=== PATIENT | female | born 1935 | race Caucasian/White ===

== ENCOUNTER 2018-11-08 13:35 | Observation (INO) ==
[2018-11-08 14:47] LABS: BASO# 0.02 X1000 (0.0-0.2); BASO% 0.4 % (0.0-0.8); EOS# 0.08 X1000 (0.0-0.7); EOS% 1.5 % (0.0-10.0); HEMOGLOBIN 13.6 g/dL (12.0-16.0); IMM GRAN# 0.02 X1000 (0.0-0.04); IMM GRAN% 0.4 % (0.0-0.5); LYMPH# 1.31 X1000 (1.2-3.4); MCH 27.1 PG (27-31); MCHC 32.4 g/dL (33-37); MCV 83.7 FL (81-99); MONO# 0.39 X1000 (0.11-0.59); MONO% 7.2 % (1.7-9.3); MPV 12.8 FL (7.4-10.4); NEUT# 3.63 X1000 (1.4-6.5); NEUT% 66.5 % (42.2-75.2); PLT 125 X1000 (130-400); RBC 5.02 XMIL (4.2-5.4); RDW 16.9 % (11.5-14.5); WBC 5.45 X1000 (4.8-10.8)
--- NOTE | 2018-11-08 14:54 | EKG Report ---
Test Performed on : 11/08/2018 2:30:53 PM Test Reason : med cl Blood Pressure : / mmHG Vent. Rate : 069 BPM Atrial Rate : 069 BPM P-R Int : 148 ms QRS Dur : 110 ms QT Int : 398 ms P-R-T Axes : 084 -37 014 degrees QTc Int : 426 ms Normal sinus rhythm. Left axis deviation Pulmonary disease pattern Incomplete right bundle branch block Voltage criteria for left ventricular hypertrophy Inferior infarct , age undetermined Abnormal ECG No previous ECGs available Unconfirmed Result
[2018-11-08 15:07] LABS: BILIRUBIN URINE NEGATIVE (NEGATIVE); BLOOD URINE NEGATIVE (NEGATIVE); CLARITY SL. CLOUDY (CLEAR); COLOR AMBER; GLUCOSE URINE NEGATIVE (NEGATIVE); KETONE URINE TRACE mg/dL (NEGATIVE); LEUKOCYTES URINE 1+ (NEGATIVE); NITRITE URINE POSITIVE (NEGATIVE); PROTEIN URINE 1+(30 mg/dL) mg/dL (NEGATIVE); UROBILINOGEN URINE 8 mg/dL
[2018-11-08 15:11] LABS: URINE BACTERIA 2+ /HFP; URINE EPITHELIAL CELLS >10 /HPF (<10); URINE SOURCE CLEAN CATCH
[2018-11-08 15:12] LABS: URINE CAST NONE SEEN /LPF; URINE CRYSTAL URIC ACID PRESENT /HPF; URINE YEAST NONE SEEN /HPF
[2018-11-08 15:13] LABS: UR AMPHETAMINES QUAL NONE DETECTED (NONE DETECT); UR BARBITUATES QUAL NONE DETECTED (NONE DETECT); UR BENZODIAZEPIN QUAL PRESUMPTIVE POSITIVE (NONE DETECT); UR CANNABINOIDS QUAL NONE DETECTED (NONE DETECT); UR COCAINE QUAL NONE DETECTED (NONE DETECT); UR METHADONE QUAL NONE DETECTED (NONE DETECT); UR METHAMPHETAMINE QUAL NONE DETECTED (NONE DETECT); UR OPIATES QUAL NONE DETECTED (NONE DETECT); UR OXYCODONE QUAL NONE DETECTED (NONE DETECT); UR PCP QUAL NONE DETECTED (NONE DETECT); UR PROPOXYPHENE QUAL NONE DETECTED (NONE DETECT); UR TCA QUAL NONE DETECTED (NONE DETECT)
[2018-11-08 15:19] LABS: AGAP 9; ALBUMIN 3.1 g/dL (3.5-5.0); ALKALINE PHOSPHATASE 169 U/L (32-104); BUN 12 mg/dL (8-22); CALCIUM 8.6 mg/dL (8.8-10.2); CHLORIDE 100 mmol/L (98-107); COSMO 274; CREATININE 0.8 mg/dL (0.5-0.9); ESTIMATED GFR > 60; GLUCOSE 141 mg/dL (70-104); GOT 356 U/L (10-30); GPT 383 U/L (10-36); POTASSIUM 4.3 mmol/L (3.5-5.1); SODIUM 136 mmol/L (136-145); TCO2 27 mmol/L (25-35); TOTAL PROTEIN 8.4 g/dL (6.3-8.3)
[2018-11-08 15:37] LABS: TSH 3.55 uIUmL (0.27-4.20)
--- NOTE | 2018-11-08 16:26 | ED EKG INTERP ---
This chart was entered by Yue Patel Scribe, acting as scribe for Margaret Lake MD. EKG Interpretation - EKG Time of EKG reading by physician:: 14:30 EKG Read and Signed by:: Margaret Lake EKG Interpretation (*Must complete 3 of following elements*): Abnormal (inferior infarct, age undetermined) Rate: 69 Rhythm: normal sinus rhythm Sparks: left QRS: RBB (incomplete) Comments: pulmonary disease pattern;voltage criteria for left ventricular hypertrophy Attestation - Physician/ NANCY Attestation The physician spent face to face time with patient:: No Advanced Practice Provider documentation review:: Supervising physician onsite and consulted in the evaluation and care of this patient. The physician did not have a face to face encounter with the patient. This chart was documented by the indicated scribe, (Yue Patel Scribe) and accurately reflects the services I performed and decisions made by me, Margaret Lake MD, as attested by the provider's signature.
[2018-11-08] MEDS ORDERED: XYLOCAINE-MPF 1% INJ ONE (17:28)
[2018-11-08] MEDS ORDERED: ROCEPHIN IM ONE (17:28)
[2018-11-08] MEDS ORDERED: TYLENOL PO PRN (18:18)
[2018-11-08] MEDS ORDERED: GEODON ONE (18:41)
[2018-11-08] MEDS: GEODON PO SCH (18:48)
[2018-11-08] MEDS: NAMENDA PO SCH (18:48)
--- NOTE | 2018-11-08 19:27 | HISTORY AND PHYSICAL ---
CHIEF COMPLAINT: Dementia with increased agitation and behavior. HISTORY OF PRESENT ILLNESS: This is an 83-year-old female with a history of dementia who presents on instructions from [facility] to be medically cleared for evaluation. According to the , the patient has dementia and her symptoms have increased. She is having increased agitation, wandering and difficulty performing activities of daily living. She is unable to participate in the exam so all information is taken from the . PAST MEDICAL HISTORY: Dementia. PAST SURGICAL HISTORY: Hysterectomy. SOCIAL HISTORY: No alcohol, tobacco, or illicit drug use. ALLERGIES: No known drug allergies. HOME MEDICATIONS: A list will be obtained by the nursing staff. We will review and restart as appropriate. REVIEW OF SYSTEMS: Unable to obtain from the patient. The is unaware of any complaints. PHYSICAL EXAMINATION: GENERAL: This is a very pleasant 83-year-old female who is pacing through the ER in no distress. VITAL SIGNS: Blood pressure is 115/80 with a heart rate of 100, respirations are 18, temperature is 98 degrees with room air saturations 100%. EYES: Pupils are equal, round, react to light. EOMs are intact. Sclerae anicteric. HEENT: Head is normocephalic, atraumatic. Mucous membranes are moist. NECK: Supple with trachea midline. CARDIOVASCULAR: Regular rate and rhythm. S1, S2 appreciated. PULMONARY: Breath sounds are clear with no increased work of breathing noted. GASTROINTESTINAL: Abdomen is soft, nontender, nondistended with bowel sounds in all 4 quadrants. NEUROLOGIC: She is awake and alert. She is disoriented. She is pleasant. SKIN: Warm and dry. LABORATORY DATA: WBC is 5.4 with hemoglobin 13.6, hematocrit 42, and platelets of 125,000. Sodium is 136, potassium 4.3, BUN 12, creatinine 0.8 with a glucose of 141. Total bilirubin is 2.6 with an AST of 356, an ALT of 383, alkaline phosphatase of 169, total protein of 8.4. She does have vitamin B12 that is greater than 2000 with a TSH of 3.5. Urinalysis is positive for nitrites with 10 to 20 microscopic white blood cells, 2+ bacteria. ASSESSMENT AND PLAN: 1. Urinary tract infection. The patient was given Rocephin IM in the emergency room. We will monitor the culture and sensitivity, and further antibiotics will be culture driven. 2. Dementia. We will identify her medications and continue. We will repeat a CMP in the morning. 3. Elevated liver function tests. The patient's state that this is chronic with the patient. We will obtain the name of the physician who is following her, and we can call tomorrow and get a history and labs. Further treatments pending hospital course. Dictated by JEMMA Hernandez for Jonathan Crowley MD This chart was documented by, JEMMA Hernandez and accurately reflects the services performed, treatment plan and medical decisions as attested by the providers signature Jonathan Crowley MD. cc: JEMMA Hernandez MD
[2018-11-08] MEDS ORDERED: HALDOL PO ONE (21:26)
[2018-11-08] MEDS ORDERED: BENADRYL PO ONE (21:27)
[2018-11-09] MEDS: GEODON PO SCH (00:02)
[2018-11-09] MEDS: NAMENDA PO SCH (00:02)
--- NOTE | 2018-11-09 00:34 | HISTORY AND PHYSICAL ---
ADDENDUM: Patient seen and examined by myself. Full note dictated and discussed with nurse practitioner. Patient presented to the ER for medical clearance as she needs to go to [facility] due to her dementia. She was noted in the ER to have a probable urinary infection as well as elevated LFTs and hyperbilirubinemia. After discussion with the , they have been told in the past her liver functions are elevated, but he is uncertain of the height of the elevation. We will admit her to the hospital, treat the UTI. Recheck her LFTs in a.m. Assuming they do not improve, we can discharge her to [facility] at that point. cc: Jonathan Crowley MD
--- NOTE | 2018-11-09 01:59 | PROVIDER DOCUMENTATION ---
This chart was entered by Yue Patel Scribe, acting as scribe for Tess Ames MD. HPI-Psychological Disorder - General Chief Complaint: Psych Stated Complaint: PYSCH Time Seen by Provider: 11/08/18 16:31 Source: family () Allergies/Adverse Reactions: Patient Allergies Allergy/AdvReac Type Severity Reaction Status Date / Time No Known Allergies Allergy Verified 11/08/18 14:19 Home Medications: Home Medication List Medication Instructions Recorded Confirmed Last Taken Type Memantine HCl 10 mg PO DAILY 11/08/18 11/08/18 11/08/18 History 10mg Rivastigmine 13.3 mg TOP DAILY 11/08/18 11/08/18 11/08/18 History 1 ea - History of Present Illness-Psych Nature of Presenting Problem: Patient is a 83 year old female who presents to the ED with agitation. Patient's was informed the patient needed to go to [facility] and then [facility] sent them here for medical clearance. Patient's states he was informed she needed to have an adjustment in medications. Onset/Duration: reports: gradual Timing: reports: still present Severity: reports: mild Situational problems related to:: reports: N/A Psychiatric Complaints: reports: agitated Substance Use: reports: denies Previous psych related hospitalizations?: Yes Patient arrived by:: private car Similar Symptoms Previously?: Yes Recently seen or treated by another doctor?: No Review of Systems - Adult - REVIEW OF SYSTEMS - ADULT ROS:: ROS per family Constitutional: reports: no symptoms reported Eyes: reports: no symptoms reported Ears, Nose, Mouth & Throat: reports: no symptoms reported Cardiovascular: reports: no symptoms reported Respiratory: reports: no symptoms reported Gastrointestinal: reports: no symptoms reported Genitourinary: reports: no symptoms reported Musculoskeletal: reports: no symptoms reported Neurological: reports: no symptoms reported Psychiatric: reports: other (agitated). denies: anxiety, depression, suicidal thoughts Endocrine: reports: no symptoms reported Hematologic/Lymphatic: reports: no symptoms reported Allergic/Immunologic: reports: no symptoms reported Past History - Adult - PAST MEDICAL HISTORY-ADULT Review of Records: reports: Nursing Assessment Review, Medications Reviewed, Social history reviewed & non-contributory. Major Childhood Illnesses: reports: denies history Cardiovascular: reports: denies history Respiratory: reports: denies history Gastrointestinal: reports: denies history Obstetrical/Gynecological: reports: denies history Genitourinary: reports: denies history Musculoskeletal: reports: denies history Neurological: reports: dementia Endocrine/Immune: reports: denies history Other Conditions: reports: denies history - PRIOR SURGERIES/PROCEDURES Surgical/Procedure History: reports: hysterectomy - IMMUNIZATION STATUS Childhood Immunizations: See Nurse Assessment Flu Vaccine: See Nurse Assessment - FAMILY HISTORY Family History: reviewed, not pertinent - SOCIAL HISTORY Smoking: cigarettes (former) Substance Use: denies Living Situation: family Physical Exam-Psych Focus - Physical Exam-Psych Initial Vital Signs Reviewed: Yes Appearance: anxious, impaired insight, other (walking around in the ER) Neurological: alert, anxious Behavior/Eye Contact/Speech: avoids eye contact, uncooperative Thoughts/Hallucinations: incoherent HENMT: normocephalic/atraumatic, moist mucous membranes Neck: non-tender, full range of motion, supple Respiratory: chest non-tender, lungs clear, normal breath sounds Cardiovascular: normal peripheral pulses, regular rate, rhythm, no edema Abdominal Exam: normal bowel sounds, non tender, soft Back Exam: no CVA tenderness Progress - PLAN OF CARE/RESULTS Progress/Plan/Lab Results: Vital Signs - 8 hr 11/08/18 20:12 Temperature 97.8 F Pulse Rate 90 Respiratory Rate 16 Blood Pressure 121/84 O2 Sat by Pulse Oximetry 96 Laboratory Results - last 24 hr 11/08/18 11/08/18 11/08/18 14:25 14:25 14:25 WBC 5.45 RBC 5.02 Hgb 13.6 Hct 42.0 MCV 83.7 MCH 27.1 MCHC 32.4 L RDW Std Deviation 16.9 H Plt Count 125 L MPV 12.8 H Immature Gran % (Auto) 0.4 Neut % (Auto) 66.5 Lymph % (Auto) 24.0 [place] % (Auto) 7.2 Eos % (Auto) 1.5 Baso % (Auto) 0.4 Immature Gran # (Auto) 0.02 Neut # (Auto) 3.63 Lymph # (Auto) 1.31 [place] # (Auto) 0.39 Eos # (Auto) 0.08 Baso # (Auto) 0.02 Sodium 136 Potassium 4.3 Chloride 100 Carbon Dioxide 27 Anion Gap 9 BUN 12 Creatinine 0.8 Estimated GFR/1.73 m2 > 60 BUN/Creatinine Ratio 15 Glucose 141 H Calculated Osmolality 274 Calcium 8.6 L Total Bilirubin 2.60 H AST 356 H ALT 383 H Alkaline Phosphatase 169 H Total Protein 8.4 H Albumin 3.1 L Globulin 5.0 Albumin/Globulin Ratio 1.0 Vitamin B12 TSH Urine Source Urine Color Urine Clarity Urine pH Ur Specific [place] Urine Protein Urine Ketones Urine Blood Urine Nitrite Urine Bilirubin Urine Urobilinogen Urine Microscopic RBC Urine WBC Urine Microscopic WBC Ur Epithelial Cells Urine Crystals Urine Bacteria Urine Casts Urine Yeast Urine Glucose Urine Opiates Screen Ur Oxycodone Screen Urine Methadone Screen U Propoxyphene Qual Ur Barbituates Screen Ur Tricyclics Screen Ur Phencyclidine Scrn Ur Amphetamines Screen U Methamphetamines Scrn U Benzodiazepines Scrn Urine Cocaine Screen U Cannabinoids Screen Plasma/Serum Ethyl Alc 11/08/18 11/08/18 11/08/18 14:25 14:30 14:30 WBC RBC Hgb Hct MCV MCH MCHC RDW Std Deviation Plt Count MPV Immature Gran % (Auto) Neut % (Auto) Lymph % (Auto) [place] % (Auto) Eos % (Auto) Baso % (Auto) Immature Gran # (Auto) Neut # (Auto) Lymph # (Auto) [place] # (Auto) Eos # (Auto) Baso # (Auto) Sodium Potassium Chloride Carbon Dioxide Anion Gap BUN Creatinine Estimated GFR/1.73 m2 BUN/Creatinine Ratio Glucose Calculated Osmolality Calcium Total Bilirubin AST ALT Alkaline Phosphatase Total Protein Albumin Globulin Albumin/Globulin Ratio Vitamin B12 > 2000 H TSH 3.55 Urine Source CLEAN CATCH Urine Color HELEN Urine Clarity SL. CLOUDY A Urine pH 5.0 Ur Specific [place] 1.020 Urine Protein 1+(30 mg/dL) A Urine Ketones TRACE Urine Blood NEGATIVE Urine Nitrite POSITIVE A Urine Bilirubin NEGATIVE Urine Urobilinogen 8 Urine Microscopic RBC Not Reportable Urine WBC 1+ A Urine Microscopic WBC 10-20 A Ur Epithelial Cells >10 A Urine Crystals URIC ACID PRESENT Urine Bacteria 2+ Urine Casts NONE SEEN Urine Yeast NONE SEEN Urine Glucose NEGATIVE Urine Opiates Screen NONE DETECTED Ur Oxycodone Screen NONE DETECTED Urine Methadone Screen NONE DETECTED U Propoxyphene Qual NONE DETECTED Ur Barbituates Screen NONE DETECTED Ur Tricyclics Screen NONE DETECTED Ur Phencyclidine Scrn NONE DETECTED Ur Amphetamines Screen NONE DETECTED U Methamphetamines Scrn NONE DETECTED U Benzodiazepines Scrn PRESUMPTIVE POSITIVE A Urine Cocaine Screen NONE DETECTED U Cannabinoids Screen NONE DETECTED Plasma/Serum Ethyl Alc Orders Category Date Time Status Admit - [facility] Routine AdmDCTranf 11/08/18 18:16 Active Nursing- Obtain EKG ONCE Care 11/08/18 14:24 Completed Vital Signs Order Q 8-HR ASSESS Care 11/08/18 18:16 Completed Regular Diet Diet 11/08/18 18:17 Active ALCOHOL BLOOD Stat Lab 11/08/18 14:25 Completed CBC WITH DIFF [HEME] Stat Lab 11/08/18 14:25 Completed COMPREHENSIVE METABOLIC PANEL [CHEM] Stat Lab 11/08/18 14:25 Completed TSH Stat Lab 11/08/18 14:[address] W/POSS RFLX CULT [URINALYSIS] Stat Lab 11/08/18 14:30 Completed URINE CULTURE [RM] Routine Lab 11/08/18 15:13 [address] DRUG SCREEN [address] Stat Lab 11/08/18 14:30 Completed VITAMIN B12 Stat Lab 11/08/18 14:25 Completed Acetaminophen [Tylenol] Med 11/08/18 18:18 Discontinued 650 mg PO Q6H PRN PRN CefTRIAXONE [Rocephin] Med 11/08/18 17:28 Discontinued 1 gm IM NOW ONE Lidocaine 1% Pf [Xylocaine-Mpf 1%] Med 11/08/18 17:28 Discontinued 5 ml INJ NOW ONE Memantine [Namenda] Med 11/08/18 21:00 Discontinued 10 mg PO BID Omeprazole [Prilosec] Med 11/09/18 07:00 Discontinued 40 mg PO DAILY@0700 Ziprasidone [Geodon] Med 11/08/18 18:41 Discontinued 20 mg .ROUTE .STK-MED ONE Ziprasidone [Geodon] Med 11/08/18 21:00 Discontinued 20 mg PO HS EKG [EKG] Stat Ther 11/08/18 14:24 Draft Transfer/Admit Order [TRANSFER] Routine Transfer 11/08/18 19:09 Completed Patient care, assessment and plan discussed with the attending physician Dr. Lake and she agree with the plan as documented. Result Diagrams: 11/08/18 14:25 11/08/18 14:25 - CONSULTS/PCP/HOSPITALIST Notification #1 *Consult/PCP/Hospitalist*: Dr. Crowley Time Discussed: 16:59 Reason/Comments: Dr. Lambert consulted with Dr. Crowley about patient. Consult Disposition: Admit Departure - Departure Date of Disposition Decision: 11/08/18 Time of Disposition Decision: 17:00 DIAGNOSIS: Elevated liver enzymes, Elevated bilirubin UTI (urinary tract infection) Qualifiers: Urinary tract infection type: site unspecified Hematuria presence: without hematuria Qualified Code(s): N39.0 - Urinary tract infection, site not specified Dementia Qualifiers: Dementia type: unspecified type Disposition: ADMITTED INPATIENT 09 Certified Medical Emergency: Emergent Condition: Stable - Critical Care Note This patient required my direct & personal management of CC.: No Attestation - Physician/ NANCY Attestation Patient care was provided by Advanced Practice Provider:: No The physician spent face to face time with patient:: Yes Advanced Practice Provider documentation review:: Supervising physician onsite and consulted in the evaluation and care of this patient. The physician did have a face to face encounter with the patient. This chart was documented by the indicated scribe, (Yue Patel Scribe) and accurately reflects the services I performed and decisions made by me, Tess Ames MD, as attested by the provider's signature.
[2018-11-09] MEDS ORDERED: PRILOSEC PO SCH (07:00)
[2018-11-09 07:16] LABS: AGAP 8; ALBUMIN 2.6 g/dL (3.5-5.0); ALKALINE PHOSPHATASE 134 U/L (32-104); BUN 12 mg/dL (8-22); CALCIUM 8.1 mg/dL (8.8-10.2); CHLORIDE 108 mmol/L (98-107); COSMO 283; CREATININE 0.6 mg/dL (0.5-0.9); ESTIMATED GFR > 60; GLUCOSE 93 mg/dL (70-104); GOT 286 U/L (10-30); GPT 304 U/L (10-36); POTASSIUM 3.8 mmol/L (3.5-5.1); SODIUM 142 mmol/L (136-145); TCO2 27 mmol/L (25-35)
[2018-11-09] MEDS ORDERED: BENADRYL IM ONE (14:55)
[2018-11-09] MEDS ORDERED: HALDOL IM PRN (14:55)
--- NOTE | 2018-11-09 16:13 | Diag Imaging Result Doc PS360 ---
EXAM: CT HEAD W/O CONTRAST - 11/09/2018 HISTORY: [place] TECHNIQUE: CT head without contrast COMPARISON: None. FINDINGS: There are generalized mild atrophic changes. There are minimal chronic appearing microvascular ischemic changes. There is no evidence of recent infarct, although acute infarcts may not be immediately visible. There is no evidence of intracranial hemorrhage, mass effect, or midline shift. There is no evidence of skull fracture. There is mild paranasal sinus disease noted at the sphenoid sinus. IMPRESSION: No visible acute intracranial abnormality. No hemorrhage or mass effect. There is mild paranasal sinus disease noted at the sphenoid sinus. This exam was performed using automated exposure control, adjustment of mA or kV according to patient size, and/or use of iterative reconstruction technique. Electronically signed by Bassem Cole 11/09/2018 4:11 PM
--- NOTE | 2018-11-09 16:26 | Diag Imaging Result Doc PS360 ---
EXAM: CHEST-PORTABLE - 11/09/2018 HISTORY: placement TECHNIQUE: Portable chest COMPARISON: None. FINDINGS: Heart size appears borderline enlarged. There is tortuosity of the thoracic aorta. Inspiration is slightly shallow. The lungs appear clear. There is no pleural effusion or pneumothorax identified. There are degenerative changes noted at the bilateral shoulders. IMPRESSION: Borderline cardiomegaly. Slightly shallow inspiration. No other evidence of acute disease. Electronically signed by Bassem Cole 11/09/2018 4:24 PM
[2018-11-09 20:07] VITALS: BP 181/65
--- NOTE | 2018-11-10 18:40 | DISCHARGE SUMMARY ---
ADMISSION DATE: 11/08/2018 DISCHARGE DATE: 11/09/2018 DIAGNOSES: 1. Urinary tract infection with culture pending. 2. Dementia. 3. Elevated liver function tests. This is chronic. DIAGNOSTICS: 1. 11/09/2018 CT of the head revealed no visible acute intracranial abnormality, no hemorrhage or mass effect. 2. Chest x-ray revealed borderline cardiomegaly, slightly shallow inspiration, no other evidence of acute disease . 3. Microbiology, urine cultures pending. HOSPITAL COURSE: Ms Yang has had increasing agitation and behavior with the increase in her dementia symptoms. She was sent to the emergency room by [facility] to be medically cleared for evaluation. She was given Rocephin in the emergency room for suspected urinary tract infection, as she has had no fever or no elevated white count we will hold off on antibiotics until cultures results and any medications will be culture driven. As stated above she does have chronic elevated liver function tests and has been followed by a physician in outlying facility. DISCHARGE PHYSICAL EXAM: Vital signs: Blood pressure is 150/71 with a heart rate of 73, respirations 16, temperature 98.8 degrees with room air saturations 99-100% Cardiovascular: Regular rate and rhythm. S1, S2 appreciated. Pulmonary: Breath sounds are clear. No increased work of breathing noted. Abdomen: Soft, nontender, nondistended with bowel sounds in all 4 quadrants. DISCHARGE MEDICATIONS: The patient is being transferred to [facility] for medication management that will be deferred to the physician following her. She is being discharged in transfer to [facility] in stable condition. TIME SPENT: Greater than 30 minutes. ADDENDUM: 11/10/2018 URINE C&S REVEALED NO GROWTH. Dictated by JEMMA Hernandez for Jonathan Crowley MD This chart was documented by, JEMMA Hernandez and accurately reflects the services performed, treatment plan and medical decisions as attested by the providers signature Jonathan Crowley MD. cc: JEMMA Hernandez MD [facility]
--- NOTE | 2018-11-10 23:26 | DISCHARGE SUMMARY ---
ADMISSION DATE: 11/08/2018 DISCHARGE DATE: 11/09/2018 ADDENDUM: Patient seen and examined by myself. Full note dictated and discussed with nurse practitioner. Patient presented to the hospital after attempting to go to [facility] and needed medical clearance. Her AST, ALT are elevated as is her total bilirubin. She was admitted to the hospital, given IV fluid. All 3 of these decreased slightly. The notes that he has been told in the past that her bilirubin as well as liver functions were up, but given her age and dementia they had declined any further treatment. We admitted the patient in the hospital, gave her Rocephin for a presumed urinary tract infection. So far, cultures are negative. She will be discharged to [facility]. cc: Jonathan Crowley MD
== END 2018-11-09 20:32 ==
LOC: P.MEDSURG 13:35 → P.ED 13:35 → SUATTDRO 20:35 → P.MEDSURG 20:50
PROVIDERS: ADMIT Family Medicine; ATTEND Family Medicine
CPT/HCPCS: 36415; 70450; 71010; 71045; 80053; 80104; 80301; 80305; 80307; 80320; 81001; 82055; 82607; 84443; 85025; 87088; 93005; 96372; 99285; A9270; G0378; G0431; G0434; G0477; G0480; G6040; J0696; J1200; J1630